=== PATIENT | female | born 1965 | race Caucasian/White ===

== ENCOUNTER → 2017-06-19 | Day surgery (SDC) | payer OTHER ==
[~2017-06-19] MED LIST: ELIQUIS5 MG PO; LANSOPRAZOLE30 M2 PO; LO-DOSE ASPIRIN81 M1 PO; LOMOTIL WHITE2.5 M1 PO; LOPRESSOR PO; MULTI VITAMIN1 EACH PO; PRAVASTATIN SOD20 MG PO; PRINIVIL5 MG PO
--- NOTE | ~2017-06-19 | OR ---
Unit #: [id number] #: [id number] Patient: FAMILIA MURDOCK [id number] [address] [place], [place] [address] [id number] O MR#: [id number] NAME: FAMILIA MURDOCK ROOM: Date of Procedure: 06/19/2017 Admission Date: 06/19/2017 Surgeon: Jordi Kaur M.D. : 1965 Attending Physician: Jordi Kaur M.D. Primary Care Physician: Thong Curtis M.D. OPERATIVE REPORT PRIMARY CARE PHYSICIAN Thong Barboza D.C. PREOPERATIVE DIAGNOSES Dyspepsia and heartburn. In addition, the patient needs a colorectal cancer screening. She also mentions history of intermittent hematochezia and history of fecal incontinence. PROCEDURES PERFORMED Upper gastrointestinal endoscopy and biopsy as well as colonoscopy with polypectomy and colonoscopy with biopsies. POSTOPERATIVE DIAGNOSES FOR UPPER ENDOSCOPY Completely normal examination up to third part of duodenum. A biopsy obtained from the antrum for CLOtest. Otherwise, examination is normal up to third part of duodenum. POSTOPERATIVE DIAGNOSES FOR COLONOSCOPY 1. The patient had 2 sessile polyps in the sigmoid colon. These were about 7 mm and 1 cm each. Both were removed using snare cautery polypectomy. 2. Rest of the examination up to cecum and terminal ileum was normal. 3. Multiple random colonic biopsies were obtained from throughout the colon to rule out microscopic or collagenous colitis. RECOMMENDATIONS The patient is being started on Lomotil on a p.r.n. basis. She will use it sparingly. She will be followed up in the office in 10 to 12 weeks' time. SEDATION USED MAC. DESCRIPTION OF PROCEDURE Following a detailed explanation of the potential risks and complications of an upper endoscopy and a colonoscopy, namely perforation, bleeding, and complication related to sedation, the patient was brought to GI lab and laid in the left lateral decubitus position. Lubricated tip of the Olympus video endoscope was passed through bite-block into the proximal esophagus under direct vision. Entire esophageal mucosa was examined and appeared normal. Z-line was nicely demarcated, there being no esophagitis Unit #: [id number] #: [id number] Patient: FAMILIA MURDOCK or hiatus hernia. The scope was then advanced into the gastric cavity, and the latter was insufflated. The scope was then advanced into the gastric cavity, and the latter was insufflated. Mucosa of the fundus, body, and antrum were examined and appeared unremarkable. Pylorus was intubated with visualization of the normal duodenal bulb and second and third part of the duodenum. Upon withdrawal and retroflexion, incisura, cardia, and greater curve examined and a biopsy obtained from the antrum for CLOtest. The scope was then withdrawn in the distal esophagus. The entire esophageal mucosa was examined all the way up to pharynx. No additional findings noted. The examination was then turned by 180 degrees. The patient positioned for a colonoscopy. A digital rectal examination was performed, which was normal. Lubricated tip of the Olympus video colonoscope was inserted through the anus and advanced under direct vision. The scope was advanced and passed up to sigmoid into descending colon. No diverticula were noted in this area. The scope tip was then navigated all the way up to cecum with visualization of the ileocecal valve and the appendiceal orifice. Preparation was excellent with good visualization, and photodocumentation was obtained. Last few inches of the terminal ileum also visualized after intubation of the ileocecal valve and appeared normal. Successive segments of the colonic mucosa were examined upon withdrawal. The patient was noted to have 2 sessile polyps in the sigmoid colon. These were a 1 cm and 7 mm each. Both were removed using snare polypectomy. The snare cautery polypectomy retrieved and sent for Histology. Excellent hemostasis was achieved and photodocumentation was obtained. In addition, multiple random colonic biopsies were also obtained from throughout the colon to rule out microscopic or collagenous colitis. The patient did not have any diverticula nor any hemorrhoids. The scope was withdrawn. The patient returned to the recovery area. She tolerated the procedure without any postprocedure complications. Dictated by... Rhonda Weinberg TD: 06/20/2017 07:17 JOB #: [id number] OPERATIVE REPORT Page 1 of 1 X Jordi Kaur MD X PROCEDURE OPERATIVE NOTE
== END | disposition home or self-care (01) ==
LOC: COPS 07:36
DX: Z12.11 Encounter for screening for malignant neoplasm of colon (principal); D12.5 Benign neoplasm of sigmoid colon; K52.9 Noninfective gastroenteritis and colitis, unspecified; J45.909 Unspecified asthma, uncomplicated; M19.90 Unspecified osteoarthritis, unspecified site; I10 Essential (primary) hypertension; F17.210 Nicotine dependence, cigarettes, uncomplicated; Z88.0 Allergy status to penicillin; Z87.19 Personal history of other diseases of the digestive system; Z86.73 Personal history of transient ischemic attack (TIA), and cerebral infarction without residual deficits; Z79.82 Long term (current) use of aspirin; Z79.899 Other long term (current) drug therapy
CPT/HCPCS: 84703; 87077; 88305